=== PATIENT | male | born 1950 | race Caucasian/White ===

== ENCOUNTER 2016-11-09 21:52 | Emergency (ER) | payer OTHER, MEDICAID ==
[~2016-11-09] VITALS: Ht 170.2 cm; Wt 83.5 kg
[2016-11-09] MEDS ORDERED: cloNIDine HCL 0.1 MG TAB PO ONE (22:15)
[2016-11-09 22:26] LABS: Basophils # (auto) 0.1 uL; Basophils % (auto) 0.5 % (0.0-2.0); Eosinophils # (auto) 0.4 uL; Eosinophils % (auto) 3.8 % (0.0-7.0); Hematocrit 36.4 % (41.0-53.0); Hemoglobin 12.3 g/dL (13.5-17.5); Lymphocytes # (auto) 2.2 uL; Lymphocytes % (auto) 21.8 % (10.0-50.0); Mean Corpuscular Hemoglobin 27.7 pg (28.0-32.0); Mean Corpuscular Hgb Conc. 33.8 g/dL (32.0-36.0); Mean Corpuscular Volume 81.9 fL (80.0-100.0); Mean Platelet Volume 7.5 fL (7.4-10.4); Monocytes # (auto) 0.5 uL; Monocytes % (auto) 4.5 % (0.0-12.0); Neutrophils # (auto) 7.1 uL; Neutrophils % (auto) 69.4 % (37.0-80.0); Platelet Count (auto) 276 10^3/uL (140-450); Red Cell Distribution Width 15.4 % (11.6-16.0); White Blood Cell 10.3 10^3/uL (4.4-10.8)
[2016-11-09 22:44] LABS: Albumin 3.1 g/dL (3.4-5.0); BUN/Creatinine Ratio 19.5; Bilirubin, Total 0.2 mg/dL (0.2-1.0); Calcium 8.8 mg/dL (8.5-10.1); Potassium 3.4 mmol/L (3.5-5.1)
[2016-11-10 00:17] VITALS: BP 155/83
[2016-11-10 00:25] LABS: Urine Bilirubin Negative (Negative); Urine Blood Negative /uL (Negative); Urine Color Yellow (Yellow); Urine Glucose Normal (Normal); Urine Ketone Negative (Negative); Urine Nitrite Negative (Negative); Urine RBC <1 /hpf (0 - 3); Urine Urobilinogen Normal (Negative); Urine pH 6.5 (5.0-8.0)
[2016-11-10] MEDS ORDERED: HYDROcodone-ACET 5/325MG TAB PO ONE (00:30)
[2016-11-10] MEDS ORDERED: IOHEXOL 300 MG/ML 100ML BOTTLE IJ ONE (00:32)
[2016-11-10] MEDS ORDERED: EZ-GAS II GRANULES (RADIOLOGY USE) PO ONE (04:29)
== END 2016-11-10 00:51 | disposition left against medical advice (07) ==
LOC: EDBD 21:52 → ER 22:03
DX: R10.9 Unspecified abdominal pain (principal); E11.9 Type 2 diabetes mellitus without complications; I10 Essential (primary) hypertension; J44.9 Chronic obstructive pulmonary disease, unspecified; F17.210 Nicotine dependence, cigarettes, uncomplicated; Z53.29 Procedure and treatment not carried out because of patient's decision for other reasons
CPT/HCPCS: 36415; 71010; 72131; 80053; 81001; 85025; 93005

== ENCOUNTER 2016-12-08 16:37 | Inpatient (IN) | payer OTHER, MEDICAID ==
[~2016-12-08] VITALS: Ht 167.6 cm; Wt 82.1 kg
[2016-12-08] MEDS ORDERED: SODIUM CHLORIDE 0.9% 1,000 ML IV ONE (17:15)
[2016-12-08 17:45] LABS: Basophils # (auto) 0 uL; Basophils % (auto) 0.3 % (0.0-2.0); DEFINITIVE VIEW TRANSMISSION; Eosinophils # (auto) 0.4 uL; Eosinophils % (auto) 4.3 % (0.0-7.0); Hematocrit 35.2 % (41.0-53.0); Hemoglobin 11.5 g/dL (13.5-17.5); Lymphocytes # (auto) 2.3 uL; Lymphocytes % (auto) 22.7 % (10.0-50.0); Mean Corpuscular Hemoglobin 26.9 pg (28.0-32.0); Mean Corpuscular Hgb Conc. 32.6 g/dL (32.0-36.0); Mean Corpuscular Volume 82.6 fL (80.0-100.0); Monocytes # (auto) 0.5 uL; Monocytes % (auto) 4.6 % (0.0-12.0); Neutrophils % (auto) 68.1 % (37.0-80.0); Platelet Count (auto) 292 10^3/uL (140-450); Red Cell Distribution Width 14.4 % (11.6-16.0); White Blood Cell 10.3 10^3/uL (4.4-10.8)
[2016-12-08 17:59] LABS: Partial Thromboplastin Time 34.9 sec (22.64-33.71); Prothrombin Time 10.8 sec (9.37-12.3)
[2016-12-08 18:10] LABS: Albumin 3.3 g/dL (3.4-5.0); Alkaline Phosphatase 55 U/L (45-117); Anion Gap 9 (5-15); Aspartate Aminotransferase 7 U/L (15-37); BUN/Creatinine Ratio 22.1; Bilirubin, Total 0.2 mg/dL (0.2-1.0); Blood Urea Nitrogen 38 mg/dL (7-18); Calcium 8.5 mg/dL (8.5-10.1); Carbon Dioxide 22 mmol/L (21-32); Chloride 96 mmol/L (98-107); GFR African American 52 mL/min; GFR Non-African American 43 mL/min; Glucose 114 mg/dL (74-106); Magnesium 2.6 mg/dL (1.6-2.6); Potassium 4.7 mmol/L (3.5-5.1); Sodium 127 mmol/L (136-145); Total Protein 7.3 g/dL (6.4-8.2)
[2016-12-08 18:40] LABS: B-Type Natriuretic Peptide 105.76 pg/mL (0-100); Temperature: 23.5 C (20.0-25.0)
[2016-12-08 22:05] LABS: Urine Bilirubin Negative (Negative); Urine Blood Negative /uL (Negative); Urine Color Yellow (Yellow); Urine Glucose Normal (Normal); Urine Ketone Negative (Negative); Urine Nitrite Negative (Negative); Urine RBC <1 /hpf (0 - 3); Urine Urobilinogen Normal (Negative)
[2016-12-09] VITALS (7 sets, daily range): BP systolic 141–187; BP diastolic 73–114
[2016-12-09] MEDS: SODIUM CHLORIDE 0.9% 1,000 ML IV SCH ×3 (00:29→21:04)
[2016-12-09] MEDS ORDERED: DEXTROSE (50%) 50ML SYRG IV PRN (00:30)
[2016-12-09] MEDS ORDERED: TEMAZEPAM 15 MG CAP PO PRN (00:30)
[2016-12-09] MEDS ORDERED: ACETAMINOPHEN 325 MG TAB PO PRN (00:30)
[2016-12-09] MEDS ORDERED: ONDANSETRON HCL 4 MG/2 ML VIAL IV PRN (00:30)
[2016-12-09] MEDS ORDERED: SODIUM CHLORIDE 0.9% 500 ML IV ONE (00:30)
[2016-12-09] MEDS: HYDROcodone-ACET 5/325MG TAB PO PRN ×5 (01:40→23:53)
[2016-12-09] MEDS: ACCU-CHEK COMFORT CURVE STRIP VI SCH ×3 (05:41→18:14)
[2016-12-09] MEDS: GABAPENTIN 300 MG CAP PO SCH ×3 (05:41→21:32)
[2016-12-09] MEDS: InsuLIN REG 1unit/0.01ml Soln (100units/ml) SC SCH ×4 (06:00→23:52)
[2016-12-09] MEDS: FAMOTIDINE 20 MG TAB PO SCH ×2 (09:54→21:33)
[2016-12-09] MEDS: ENOXAPARIN SOD 40 MG/0.4 ML SYRINGE SC SCH ×2 (09:55→09:58)
[2016-12-09] MEDS ORDERED: TRIAMTERENE/HCTZ 75/50MG TABLET PO SCH (10:00)
[2016-12-09] MEDS ORDERED: ASPirin 81 mg TAB PO SCH (10:00)
[2016-12-09] MEDS ORDERED: TRIA75TA55 PO (11:21)
[2016-12-09] MEDS ORDERED: HYDR12.56 PO (11:21)
[2016-12-09] MEDS ORDERED: GABA-339 PO (11:21)
[2016-12-09] MEDS ORDERED: METF-312 PO (11:21)
[2016-12-09] MEDS ORDERED: SIMV-8 PO (11:21)
[2016-12-09] MEDS ORDERED: MELO-86 PO (11:21)
[2016-12-09] MEDS ORDERED: ATEN-60 PO (11:21)
[2016-12-09 13:56] LABS: BUN/Creatinine Ratio 21.2; Magnesium 2.7 mg/dL (1.6-2.6); Potassium 4.9 mmol/L (3.5-5.1)
[2016-12-09] MEDS: CLOPIDOGREL BISULFATE 75 MG TAB PO SCH (18:55)
[2016-12-09] MEDS ORDERED: SODIUM CHLORIDE 0.9% 250 ML IV ONE (20:00)
[2016-12-09] MEDS: amLODIPine BESYLATE 5 MG TAB PO SCH (21:00)
[2016-12-09] MEDS: METOPROLOL TARTRATE 25 MG TAB PO SCH (21:32)
[2016-12-09] MEDS: ATORVASTATIN 20 MG TAB PO SCH (21:32)
[2016-12-09] MEDS ORDERED: PATIENTS OWN MEDICATION (simvastatin 20 MG) PO SCH ×2 (22:00)
[2016-12-09] MEDS: hydrALAZINE HCL 25 MG TAB PO PRN (23:53)
[2016-12-10] VITALS (8 sets, daily range): BP systolic 125–168; BP diastolic 57–86
[2016-12-10] MEDS: ACCU-CHEK COMFORT CURVE STRIP VI SCH ×4 (00:06→18:00)
[2016-12-10] MEDS: hydrALAZINE HCL 25 MG TAB PO PRN (04:56)
[2016-12-10] MEDS: HYDROcodone-ACET 5/325MG TAB PO PRN ×3 (04:56→20:43)
[2016-12-10] MEDS: GABAPENTIN 300 MG CAP PO SCH ×3 (05:58→22:08)
[2016-12-10] MEDS: SODIUM CHLORIDE 0.9% 1,000 ML IV SCH ×2 (05:59→16:31)
[2016-12-10] MEDS: InsuLIN REG 1unit/0.01ml Soln (100units/ml) SC SCH ×3 (06:00→18:00)
[2016-12-10 06:46] LABS: Basophils # (auto) 0 uL; Basophils % (auto) 0.3 % (0.0-2.0); Eosinophils # (auto) 0.5 uL; Eosinophils % (auto) 5.4 % (0.0-7.0); Hematocrit 33.1 % (41.0-53.0); Lymphocytes # (auto) 1.9 uL; Lymphocytes % (auto) 20.3 % (10.0-50.0); Mean Corpuscular Hemoglobin 27.3 pg (28.0-32.0); Mean Corpuscular Hgb Conc. 33.3 g/dL (32.0-36.0); Mean Corpuscular Volume 82.1 fL (80.0-100.0); Monocytes # (auto) 0.5 uL; Monocytes % (auto) 5.9 % (0.0-12.0); Neutrophils # (auto) 6.2 uL; Neutrophils % (auto) 68.1 % (37.0-80.0); Platelet Count (auto) 253 10^3/uL (140-450); Red Cell Distribution Width 14.6 % (11.6-16.0); White Blood Cell 9.1 10^3/uL (4.4-10.8)
[2016-12-10 06:49] LABS: Albumin 3.1 g/dL (3.4-5.0); BUN/Creatinine Ratio 22.9; Calcium 8.3 mg/dL (8.5-10.1); Magnesium 2.6 mg/dL (1.6-2.6); Potassium 4.3 mmol/L (3.5-5.1)
[2016-12-10 06:53] LABS: Bilirubin, Total 0.3 mg/dL (0.2-1.0); Total Protein 6.6 g/dL (6.4-8.2)
[2016-12-10] MEDS ORDERED: IOHEXOL 300 MG/ML 100ML BOTTLE IJ ONE (09:29)
[2016-12-10] MEDS: CLOPIDOGREL BISULFATE 75 MG TAB PO SCH (11:33)
[2016-12-10] MEDS: amLODIPine BESYLATE 5 MG TAB PO SCH (11:34)
[2016-12-10] MEDS: FAMOTIDINE 20 MG TAB PO SCH ×2 (11:35→22:07)
[2016-12-10] MEDS: METOPROLOL TARTRATE 25 MG TAB PO SCH ×2 (11:35→22:00)
[2016-12-10] MEDS: ENOXAPARIN SOD 40 MG/0.4 ML SYRINGE SC SCH (11:35)
[2016-12-10] MEDS: ATORVASTATIN 20 MG TAB PO SCH (22:07)
[2016-12-11] MEDS: ACCU-CHEK COMFORT CURVE STRIP VI SCH ×4 (01:13→17:03)
[2016-12-11] MEDS: HYDROcodone-ACET 5/325MG TAB PO PRN ×4 (01:13→17:05)
[2016-12-11] MEDS: SODIUM CHLORIDE 0.9% 1,000 ML IV SCH ×2 (01:58→12:00)
[2016-12-11] MEDS: GABAPENTIN 300 MG CAP PO SCH ×2 (05:22→14:12)
[2016-12-11] MEDS: InsuLIN REG 1unit/0.01ml Soln (100units/ml) SC SCH ×4 (05:22→17:03)
[2016-12-11 06:21] VITALS: BP 124/70
[2016-12-11 08:00] VITALS: BP 139/74
[2016-12-11] MEDS: CLOPIDOGREL BISULFATE 75 MG TAB PO SCH (09:02)
[2016-12-11] MEDS: FAMOTIDINE 20 MG TAB PO SCH (09:02)
[2016-12-11] MEDS: ENOXAPARIN SOD 40 MG/0.4 ML SYRINGE SC SCH (09:03)
[2016-12-11] MEDS: METOPROLOL TARTRATE 25 MG TAB PO SCH (09:03)
[2016-12-11 10:09] LABS: Basophils # (auto) 0 uL; Basophils % (auto) 0.4 % (0.0-2.0); Eosinophils # (auto) 0.5 uL; Eosinophils % (auto) 4.4 % (0.0-7.0); Hematocrit 33.6 % (41.0-53.0); Hemoglobin 11.2 g/dL (13.5-17.5); Lymphocytes # (auto) 1.6 uL; Lymphocytes % (auto) 15.9 % (10.0-50.0); Mean Corpuscular Hemoglobin 27.2 pg (28.0-32.0); Mean Corpuscular Hgb Conc. 33.4 g/dL (32.0-36.0); Mean Corpuscular Volume 81.4 fL (80.0-100.0); Mean Platelet Volume 6.7 fL (7.4-10.4); Monocytes # (auto) 0.5 uL; Monocytes % (auto) 5.3 % (0.0-12.0); Neutrophils # (auto) 7.6 uL; Platelet Count (auto) 268 10^3/uL (140-450); Red Cell Distribution Width 14.8 % (11.6-16.0); White Blood Cell 10.3 10^3/uL (4.4-10.8)
[2016-12-11 10:51] LABS: BUN/Creatinine Ratio 24.8; Calcium 9.3 mg/dL (8.5-10.1); Magnesium 2.6 mg/dL (1.6-2.6); Potassium 5.1 mmol/L (3.5-5.1)
[2016-12-11 13:00] VITALS: BP 154/80
[2016-12-11] MEDS: amLODIPine BESYLATE 5 MG TAB PO SCH (15:09)
[2016-12-11 17:00] VITALS: BP 137/82
[2016-12-11] MEDS: hydrALAZINE HCL 25 MG TAB PO PRN (17:04)
[2016-12-11 17:05] VITALS: BP 137/82
[2016-12-11] MEDS ORDERED: IOHEXOL 300 MG/ML 100ML BOTTLE IJ ONE (17:41)
== END 2016-12-11 17:08 | disposition short-term general hospital (02) | DRG 64 ==
LOC: EDBD 16:37 → ER 16:37 → OVERFLOW 16:38 → CENTRAL 12-09 01:12
PROVIDERS: ADMIT Internal Medicine; ATTEND Family Medicine
DX: I63.9 Cerebral infarction, unspecified (principal); N17.0 Acute kidney failure with tubular necrosis; G81.94 Hemiplegia, unspecified affecting left nondominant side; E87.1 Hypo-osmolality and hyponatremia; E44.1 Mild protein-calorie malnutrition; J44.9 Chronic obstructive pulmonary disease, unspecified; E78.5 Hyperlipidemia, unspecified; I12.9 Hypertensive chronic kidney disease with stage 1 through stage 4 chronic kidney disease, or unspecified chronic kidney disease; N18.9 Chronic kidney disease, unspecified; E11.22 Type 2 diabetes mellitus with diabetic chronic kidney disease; E27.9 Disorder of adrenal gland, unspecified; E86.0 Dehydration; Z68.29 Body mass index [BMI] 29.0-29.9, adult; Z72.0 Tobacco use
CPT/HCPCS: 36415; 70450; 70551; 71010; 74178; 76775; 80048; 80053; 80061; 81001; 82088; 82533; 82962; 83735; 83835; 83880; 84244; 84484; 85025; 85610; 85652; 85730; 87081; 93005; 93306; 93886; J1815